=== PATIENT | female | born 1930 | race Caucasian/White ===

== ENCOUNTER 2018-01-12 08:25 | Inpatient (IN) | payer OTHER ==
[~2018-01-12] VITALS: Ht 166.4 cm; Wt 61.5 kg
[2018-01-12] MEDS ORDERED: DIPH25CA83 PO (08:41)
[2018-01-12] MEDS ORDERED: BETA1TAB18 PO (08:41)
[2018-01-12] MEDS ORDERED: ATOR10TA PO (08:41)
[2018-01-12] MEDS ORDERED: NITROGLYCERIN OINT 1 GM PACKET TP ONE ×2 (08:46→08:52)
--- NOTE | 2018-01-12 08:50 | NUR ---
DR ARVIZU AT BEDSIDE FOR EVAL. NASAL O2 STARTED AT 2LPM PER MD ORDER.
[2018-01-12] MEDS ORDERED: ASPIRIN 81 MG TAB.CHEW ONE (08:51)
[2018-01-12 08:53] LABS: CARBON DIOXIDE 28 mmol/L (21-32); CHLORIDE 104 mmol/L (98-107); CREATININE 0.7 mg/dL (0.6-1.3); GLUCOSE 93 mg/dL (74-106); POTASSIUM 3.7 mmol/L (3.5-5.1); UREA NITROGEN, BLOOD 11 mg/dL (7-18)
[2018-01-12] MEDS ORDERED: ASPIRIN 81 MG TAB.CHEW PO ONE (09:00)
[2018-01-12 09:01] LABS: ALANINE AMINOTRANSFERASE 30 U/L (14-59); ALKALINE PHOSPHATASE 90 U/L (50-136); ASPARTATE AMINOTRANSFERASE 25 U/L (15-37); BASOPHILS % (AUTO) 0.3 % (0.0-2.0); BILIRUBIN,TOTAL 0.9 mg/dL (0.2-1.0); CREATINE KINASE, TOTAL 76 U/L (26-192); EOSINOPHILS # (AUTO) 0.1 K/uL (0.0-0.7); EOSINOPHILS % (AUTO) 0.7 % (0.0-7.0); HEMATOCRIT 39.8 % (31.2-41.9); HEMOGLOBIN 13.5 g/dL (10.9-14.3); LYMPHOCYTES # (AUTO) 1.6 K/uL (20.0-40.0); LYMPHOCYTES % (AUTO) 13.8 % (20.5-51.5); MEAN CORPUSCULAR HEMOGLOBIN 30.3 uug (24.7-32.8); MEAN CORPUSCULAR HGB CONC 34 g/dL (32.3-35.6); MEAN CORPUSCULAR VOLUME 89.2 fL (75.5-95.3); MONOCYTES # (AUTO) 0.7 K/uL (2.0-10.0); MONOCYTES % (AUTO) 5.8 % (0.0-11.0); NEUTROPHILS # (AUTO) 9.3 K/uL (1.8-8.9); NEUTROPHILS % (AUTO) 79.4 % (38.5-71.5); PLATELET COUNT (AUTO) 230 K/uL (179-408); RED BLOOD CELL COUNT(AUTO) 4.46 MIL/uL (3.63-4.92); TOTAL PROTEIN, SERUM 8.5 g/dL (6.4-8.2); WHITE BLOOD COUNT (AUTO) 11.7 K/uL (3.8-11.8)
--- NOTE | 2018-01-12 09:29 | NUR ---
ALL MD ORDERS COMPLETED, ROGER THE ADMISSION LAB AIDE CALLED [facility].
[2018-01-12 09:40] LABS: *BILIRUBIN,URIN NEGATIVE (NEGATIVE); *BLOOD, URINE Trace-intact (NEGATIVE); *CLARITY,URINE CLEAR (CLEAR); *COLOR,URINE YELLOW (YELLOW); *KETONES,URINE NEGATIVE (NEGATIVE); *PROTEIN,URINE TRACE (NEGATIVE); *UROBILINOGEN,URINE 0.2 E.U./dl (NORMAL); LEUKOCYTE ESTERASE ,URINE NEGATIVE (NEGATIVE); NITRITE, URINE NEGATIVE (NEGATIVE); UGLUCOSE NEGATIVE (NEGATIVE)
[2018-01-12 09:50] LABS: BACTERIA,URINE NONE SEEN /HPF (NONE SEEN); MUCUS,URINE MODERATE /LPF (0-FEW); SQUAMOUS EPITHELIAL CELL,UR FEW /HPF (NONE SEEN)
[2018-01-12] MEDS ORDERED: METOPROLOL TARTRATE 50 MG TABLET PO ONE (10:00)
[2018-01-12] MEDS ORDERED: METOPROLOL TARTRATE 50 MG TABLET ONE (10:05)
--- NOTE | 2018-01-12 10:50 | NUR ---
NEW PATIENT FROM ER TO ROOM 207 AWAKE ALERT SOME FORGETFUL AND MILD HYDABURG BUT FOLLOW SIMPLE DIRECTION WELL NO SOB OR CHEST PAIN VS TAKEN STABLE BED ALARM ON AND CALL LIGHT IN REACH REMIOND TO CALL WHEN NEED
[2018-01-12 11:44] VITALS: BP 130/78
--- NOTE | 2018-01-12 12:15 | NUR ---
DR EPPS ,T WAS INFORM OF PATRIENT ADM AND MESSAGE LEFT FOR ORDER
--- NOTE | 2018-01-12 13:00 | NUR ---
EAT LUNCH MOD AMT NO PAIN OR N/V RESTING WELL WATCHING TV IN ROOM
[2018-01-12 15:34] VITALS: BP 119/69
--- NOTE | 2018-01-12 17:30 | NUR ---
STABLE HEMODYNAMIC STATUS NO ACUTE DISTRESS OR SOB PAIN UNDER CONTROL SAFETY MEASURE PROVIDED CALL LIGHT IN REACH
--- NOTE | 2018-01-12 19:30 | NUR ---
NSG: Pt received a/o x 4, c/o chest pain that does not radiate, 02/28. pt stated she has angina. will notify MD torre pt does not have meds ordered yet. tele, SR. put on 2L O2 via nc for comfort. refused dvt pumps. call light within reach. bed alarm on.
[2018-01-12 20:00] VITALS: BP 128/71
[2018-01-12] MEDS ORDERED: NITROGLYCERIN 0.4 MG/TAB BOTTLE SL PRN (20:15)
[2018-01-12] MEDS ORDERED: MORPHINE SULFATE 4 MG/1 ML DISP.SYRIN IV PRN (20:15)
[2018-01-12] MEDS ORDERED: MORPHINE SULFATE 2 MG/1 ML DISP.SYRIN IV PRN (20:15)
[2018-01-13] VITALS: BP 109/67
[2018-01-13 04:00] VITALS: BP 129/71
--- NOTE | 2018-01-13 06:00 | NUR ---
nsg: no acute distress noted. ambulatory with assistance, gait unsteady. denies cp at this time. tele, SR. cont to monitor.
--- NOTE | 2018-01-13 08:00 | NUR ---
AWAKE AND ALERT ORIENTED X3, NO SS OF DISTRESS OR FURTHER C/O CP. SR ON MONITOR
--- NOTE | 2018-01-13 11:00 | NUR ---
SEEN BY DR EPPS WITH DC ORDER, HAM STRINGER AWARE, PATIENT MADE AWARE [facility] TO PICK-UP PATIENT
[2018-01-13 11:23] VITALS: BP 155/68
--- NOTE | 2018-01-13 13:06 | NUR ---
DISCHARGE HOME STABLE ACCOMPANIED BY [facility] WITH INSTRUCTION
[2018-01-13] MEDS ORDERED: ATORVASTATIN 10 MG TABLET PO SCH (18:00)
== END 2018-01-13 13:10 | disposition home or self-care (01) | DRG 315 ==
LOC: ER 08:25 → TELE 10:33 → MED 01-13 12:13
PROVIDERS: ADMIT Nurse Practitioner Acute Care; ATTEND Nurse Practitioner Acute Care
DX: I31.9 Disease of pericardium, unspecified (principal); G11.9 Hereditary ataxia, unspecified; E78.5 Hyperlipidemia, unspecified; F41.9 Anxiety disorder, unspecified; I10 Essential (primary) hypertension; I70.0 Atherosclerosis of aorta; K21.9 Gastro-esophageal reflux disease without esophagitis
CPT/HCPCS: 36415; 70030-TC; 71045; 85025; 85610; 85651; 86140; 93005; 93307; A4663